=== PATIENT | female | born 1945 | race Hispanic/Latino ===

== ENCOUNTER 2021-12-31 07:23 | Emergency (ER) | payer MEDICARE ==
[~2021-12-31] VITALS: Ht 152.4 cm; Wt 73.9 kg
[~2021-12-31 07:23] MED LIST: TAMSULOSIN HCL0.4 MG PO; TYLENOL # 31 EA PO; TYLENOL PO
[2021-12-31] MEDS ORDERED: DIAZEPAM 5 MG TAB PO ONE (08:15)
[2021-12-31] MEDS ORDERED: KETOROLAC TROMETHAMINE 30 MG/ML VIAL IM ONE (08:15)
== END 2021-12-31 09:59 | disposition home or self-care (01) ==
LOC: ER 07:35
DX: M62.830 Muscle spasm of back (principal); Z87.442 Personal history of urinary calculi
CPT/HCPCS: 99283; J1885